=== PATIENT | male | born 1960 | race Caucasian/White ===

== ENCOUNTER → 2023-03-21 | Outpatient (CLI) | payer SELFPAY ==
[2023-03-23 08:13] LABS: Stool Occult Blood Guaiac 1 Neg (Neg)
== END | disposition home or self-care (01) ==
LOC: LAB 08:45 → LAB SHORT 08:45
PROVIDERS: Family Medicine
DX: R63.4 Abnormal weight loss (principal)
CPT/HCPCS: 82270

== ENCOUNTER 2023-05-27 11:52 | Day surgery (SDC) | payer BC ==
[~2023-05-27] VITALS: Ht 182.9 cm; Wt 83.9 kg
[2023-05-27] MEDS ORDERED: SILD50TA (12:09)
[2023-05-27] MEDS ORDERED: PRAVASTATIN (12:09)
[2023-05-27 14:18] VITALS: BP 128/89
== END 2023-05-27 14:22 | disposition home or self-care (01) ==
LOC: ORSCSDS 11:52
PROVIDERS: Surgery
PROC: 0DBH8ZX Excision of Cecum, Via Natural or Artificial Opening Endoscopic, Diagnostic (ICD-10-PCS; principal; 2023-05-27 13:00)
PROC: 0DBM8ZX Excision of Descending Colon, Via Natural or Artificial Opening Endoscopic, Diagnostic (ICD-10-PCS; principal; 2023-05-27 13:00)
PROC: 0DBP8ZX Excision of Rectum, Via Natural or Artificial Opening Endoscopic, Diagnostic (ICD-10-PCS; principal; 2023-05-27 13:00)
DX: Z12.11 Encounter for screening for malignant neoplasm of colon (principal); D12.0 Benign neoplasm of cecum; D12.4 Benign neoplasm of descending colon; K62.1 Rectal polyp; K64.0 First degree hemorrhoids; Z87.891 Personal history of nicotine dependence; Z79.899 Other long term (current) drug therapy
CPT/HCPCS: 88305; J2704; J7120